=== PATIENT | female | born 1965 | race Caucasian/White ===

== ENCOUNTER 2016-09-19 13:52 | Observation (INO) | payer BC ==
--- NOTE | ~2016-09-19 | CN ---
Consultation Report [facility] [address] [place]. [address] NAME: BLAISE ALEXANDRA : 63 STATUS : DIS Cheryle PAT#: [id number] AGE: 50 ADM/REG DATE : 09/19/16 MR#: [id number] REPORT SERV DATE: 09/20/16 DICTATED BY: APPLE FINNEY DATE: 09/20/16 REPORT STATUS : Draft TRANSCRIBED BY: MODL DATE: 09/20/16 CARDIOLOGY CONSULTATION NOTE DATE OF CONSULTATION: 09/20/2016 REASON FOR CONSULTATION: Chest pain and syncope of several months duration with syncopal event yesterday. HISTORY OF PRESENT ILLNESS: Ms. Alexandra is a 50-year-old woman with a history of depression/anxiety and no significant previous cardiovascular history. Approximately two months ago, the patient reports the onset of a substernal pressure-type chest pain. The patient reports this is a "heaviness" as if someone were sitting on her chest. The pain does not radiate. The patient reports the pain is not clearly associated with dyspnea or diaphoresis. The pain is not clearly exertional. The patient reports the pain may last anywhere from several minutes to several hours. She was seen at [facility] about two months ago where she was evaluated with an exercise stress test with myocardial perfusion imaging. The nuclear portion of the study was essentially normal, showing no myocardial ischemia. The patient did, however, have borderline EKG changes with exercise, and this was mentioned in the report with a recommendation for cardiology consultation. It is not clear whether cardiology consultation occurred at that time. However, the patient reports she had no exertional chest pain, and apparently had a reasonable functional capacity. The patient has continued to have waxing and waning chest pain since that time. Yesterday, the patient had an episode of chest pain. She was talking to one of her colleagues when she had an episode of syncope/near syncope. The patient reports the episode was witnessed. She reports that she woke up on the floor, however, she was unconscious only for a several seconds. The patient denies any loss of bowel or bladder control, post-ictal type confusion, or other neurologic symptoms. The patient was brought to [facility] for further evaluation. The patient reports she was given up to three nitroglycerin tablets for chest pain in the past. These moderated the pain somewhat, but did not completely relieve it. The patient denies orthopnea, paroxysmal nocturnal dyspnea, palpitations, or any previous syncope. PAST MEDICAL HISTORY: Significant only for gastroesophageal reflux disease, depression, and anxiety. PAST SURGICAL HISTORY: The patient has had a total abdominal hysterectomy and bilateral oophorectomy. She has had previous tonsillectomy. SURGICAL HISTORY: Otherwise negative. FAMILY HISTORY: The patient reports that her mother was diagnosed with congestive heart Consultation Report [address] [place]. [address] NAME: BLAISE ALEXANDRA : 63 STATUS : DIS Cheryle PAT#: [id number] AGE: 50 ADM/REG DATE : 09/19/16 MR#: [id number] REPORT SERV DATE: 09/20/16 DICTATED BY: APPLE FINNEY DATE: 09/20/16 REPORT STATUS : Draft TRANSCRIBED BY: ALVIN DATE: 09/20/16 failure at an advanced age. There is no family history of early coronary heart disease or sudden cardiac . SOCIAL HISTORY: The patient was one pack per day x32 year smoker. She quit about four years ago. She has no significant history of alcohol or drug use. She is with children. ALLERGIES: THE PATIENT HAS NO KNOWN MEDICATION ALLERGIES. HOME MEDICATIONS: 1. Prozac 20 mg p.o. daily. 2. Lysine 1 g p.o. daily. 3. Omeprazole 40 mg p.o. daily. REVIEW OF SYSTEMS: A complete 12-system review was performed. This is noncontributory except for the pertinent positives and negatives noted in the history of present illness above. PHYSICAL EXAMINATION: VITAL SIGNS: Temperature is 98.1 degrees Fahrenheit, blood pressure is 112/68 mmHg, heart rate is 58 beats per minute and regular, respirations 15, oxygen saturation is 98% on room air. CONSTITUTIONAL: The patient is a well-nourished, well-developed white woman in no acute distress EYES: PERRL, EOMI, clear conjunctiva. HEAD/MNT: NCAT with moist mucous membranes and grossly normal hard and soft palate. NECK: Supple with no obvious thyromegaly or lymphadenopathy. CARDIOVASCULAR: There is a regular rhythm with a normal S1 and a physiologically split second heart sound. There are no significant murmurs, rubs, or gallops. The jugular venous pressure appears normal. PULMONARY: Clear to auscultation bilaterally, no wheezing, rales or rhonchi noted. No dullness to percussion. Non-labored. ABDOMINAL: Soft, non-tender, non-distended with no hepatosplenomegaly noted. EXTREMITIES: No clubbing, cyanosis or edema. MUSCULOSKELETAL: Grossly normal strength and range of motion in all extremities INTEGUMENTARY: Skin appears intact with no bruises, wounds or active lesions noted NEURO/PSYC: Alert and oriented x3, with no dysarthria, facial droop or lateralizing weakness noted. 12-LEAD EKG: The 12-lead EKG shows normal sinus rhythm with a rate of 62 beats per minute. There is a first degree AV block. The EKG is otherwise normal. TELEMETRY: This shows sinus bradycardia/normal sinus rhythm with no significant abnormalities. CHEST X-RAY: The chest x-ray shows a normal cardiomediastinal silhouette with no acute Consultation Report [address] [address] NAME: BLAISE ALEXANDRA : 63 STATUS : DIS Cheryle PAT#: [id number] AGE: 50 ADM/REG DATE : 09/19/16 MR#: [id number] REPORT SERV DATE: 09/20/16 DICTATED BY: APPLE FINNEY DATE: 09/20/16 REPORT STATUS : Draft TRANSCRIBED BY: ALVIN DATE: 09/20/16 cardiopulmonary process. LABORATORY DATA: Sodium is 143, potassium 3.8, chloride is 110, CO2 of 24, BUN 9, creatinine is 0.67, glucose is 83, calcium 9.1, magnesium 2.1. Troponin I is less than 0.02. White blood cell count is 6.3, hemoglobin 13.7, hematocrit 41, platelets 191, INR is 1.0, PTT is 29, D-dimer is less than 0.27. A second troponin I is also less than 0.02. CT scan of the chest: The patient's CT scan of the chest shows no evidence of pulmonary embolism. The coronary anatomy is reasonably well visualized: There is no evidence of coronary calcification nor is there any obvious evidence of coronary occlusion. The patient's coronary anatomy appears grossly normal by CT scan, though this was not a coronary protocol. ASSESSMENT AND PLAN: 1. Chest pain and syncope/near syncope: At this time, the patient has no obvious evidence of coronary heart disease. She has had an essentially normal stress test at [place]. A repeat stress test has been performed with PET imaging today. The official report is pending at this time. Provided the patient's PET scan shows no evidence of myocardial ischemia, I do not feel any further cardiovascular workup would be indicated except for perhaps a Holter monitor study to evaluate for any significant cardiac dysrhythmia. Provided the patient's PET scan is normal, I feel the patient could be safely discharged to home. She may follow up with Cardiology Clinic in 2-4 weeks to review the results of her Holter monitor. 2. Anxiety disorder: I think the patient's anxiety disorder is the likely cause of her symptoms. The patient was recently started on Prozac. Thank you for allowing me to participate in the care of Ms. Alexandra. The Cardiology Service will continue to follow the patient closely during this hospitalization. [facility]/ASHLEYL Apple Finney MD / [id number] CC: Giovanni Jaffe
--- NOTE | ~2016-09-19 | HP ---
History And Physical [place] [id number] [facility] [place]. [address] NAME: BLAISE ALEXANDRA : 63 STATUS : ADM Cheryle PAT#: [id number] AGE: 50 ADM/REG DATE : 09/19/16 MR#: [id number] REPORT SERV DATE: 09/19/16 DICTATED BY: JIMENEZ DE JESUS DATE: 09/19/16 REPORT STATUS : Draft TRANSCRIBED BY: MODAnthony DATE: 09/19/16 DATE OF ADMISSION: 09/19/2016 CHIEF COMPLAINT: Chest pain. HISTORY OF PRESENT ILLNESS: The patient is a very pleasant 50-year-old white female. About 2 months ago, she developed some substernal chest pressure. She went to [place], had nuclear stress testing which was negative. She states she was pain-free for about three weeks, then she started developing intermittent chest pain about every other day. She does not note that it is present necessarily with exertion; sometimes she has it at rest. She has no associated indigestion. No fever. No cough. She has had no nausea or vomiting. She had some diaphoretic episodes with it. Today she was at work. She had a fairly significant episode of chest pain and then she had a syncopal episode. She was brought to [facility] Emergency Department. She is otherwise healthy relatively. PAST MEDICAL HISTORY: GERD, depression, and anxiety. SOCIAL HISTORY: She quit smoking four years ago. Smoked one pack per day for 32 years. No alcohol use. 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 PAST SURGICAL HISTORY: She has had hysterectomy and tonsillectomy. FAMILY HISTORY: Her mom had CHF in her 80s. Her dad does not have any history of CAD and there is no CAD in her siblings. ALLERGIES: NO KNOWN DRUG ALLERGIES. REVIEW OF SYSTEMS: Full 10-point review of systems obtained. Pertinent positives are mentioned in the HPI. PHYSICAL EXAMINATION: VITAL SIGNS: Blood pressure 122/60, temperature 98.4, pulse 68, respiratory rate 18, and sats were 95% on room air. GENERAL: Well-developed white female, in no obvious distress. HEART: Regular rate and rhythm without murmurs, rubs, or gallops. LUNGS: Grossly clear with good symmetrical air entry. ABDOMEN: Soft, nontender, and nondistended although she does have some mild very upper epigastric tenderness and some tenderness at the sternum upon palpation. EXTREMITIES: Warm and dry. SKIN: Intact without obvious rash or lesion. PSYCHIATRIC: She does appear to be anxious and tearful. LABORATORY AND X-RAY: CBC is normal. Chest x-ray is negative. EKG shows sinus rhythm without any acute ST-T wave changes. Chemistry panel is normal. Troponin is negative. D- dimer is 0.27. History And Physical [address] [address] NAME: BLAISE ALEXANDRA : 63 STATUS : ADM Cheryle PAT#: [id number] AGE: 50 ADM/REG DATE : 09/19/16 MR#: [id number] REPORT SERV DATE: 09/19/16 DICTATED BY: JIMENEZ DE JESUS DATE: 09/19/16 REPORT STATUS : Draft TRANSCRIBED BY: ALVIN DATE: 09/19/16 ASSESSMENT/PLAN: 1. Chest pain, now off and on for two months, no particular pattern. She is not tachycardic or hypertensive. Her initial troponin is negative. She had a negative nuclear stress test at [place] 2 months ago. I think given that this is now her second admission, we ought to look a little deeper certainly. Since she had a syncopal episode today with chest pain, must consider PE but also consider vasovagal response. We will do a CTA of her chest, also consider gallbladder disease. We will check her LFTs, amylase, lipase and perform a right upper quadrant ultrasound. I am going to obtain her records from [facility]. Place her on enteric-coated aspirin. We will provide some antianxiety medication and pain medication. Hopefully once we have all these results back, she could go home tomorrow if they are all negative. 2. Deep venous thrombosis prophylaxis with subcutaneous Lovenox. 3. Depression and anxiety. Continue Prozac and p.r.n. Xanax. 4. GERD. Continue PPI therapy. 5. Disposition pending above. CHINEDU/ALVIN Jimenez De Jesus M.D. / [id number] CC: Maddy Martinez M.D.
--- NOTE | ~2016-09-19 | DS ---
Discharge Summary [facility] [address] [facility] [place]. [address] NAME: BLAISE ALEXANDRA : 63 STATUS : DIS Cheryle PAT#: [id number] AGE: 50 ADM/REG DATE : 09/19/16 MR#: [id number] REPORT SERV DATE: 09/30/16 DICTATED BY: JIMENEZ VELASQUEZ DATE: 09/30/16 REPORT STATUS : Draft TRANSCRIBED BY: MODL DATE: 09/30/16 ADMISSION DATE: 09/19/2016 DISCHARGE DATE: 09/20/2016 DISCHARGE DIAGNOSES: 1. Atypical chest pain. 2. Right upper lung nodule 4.4 mm. 3. Gastroesophageal reflux disease. 4. Depression. 5. Anxiety. HOSPITAL COURSE: The patient is a very pleasant 50-year-old white female, who admitted with substernal chest pressure. She had undergone evaluation at [place] about three weeks prior to admission to our facility. At that time, she had apparently a nuclear stress test that showed negative imaging but she had some borderline EKG changes. It was recommended that she have Cardiology consultation; however, she was sent home, returned here with substernal chest pressure. She underwent a significant evaluation including CTA of the chest, cardiac enzymes amylase, lipase, right upper quadrant ultrasound, with no real etiology found. It was felt due to the fact that she had an intermediate treadmill portion EKG of her stress test at [place], she should go ahead with a PET myocardial perfusion study which she did on 09/20/2016, this was essentially normal and it was felt that she was safe for discharge. Her chest pain had resolved and there is no clear etiology for pain. She had a CT of the chest that essentially did not reveal a PE. FINDINGS WHILE IN THE HOSPITAL: 1. A 4 mm right upper lobe lung nodule. 2. Negative PET myocardial perfusion study. 3. Normal amylase and lipase. Right upper quadrant ultrasound with no stones or sludge or wall thickening. DISCHARGE INSTRUCTIONS: The patient was given an appointment for CT scan of her chest for re evaluation of her pulmonary nodule in 3 months. She was also told she needed to follow up with her primary care physician, and that he would need to follow up her CT scan. She was given explicit written instructions regarding this. She can follow up with her PCP if she has any additional chest pain. DISCHARGE MEDICATIONS: The patient will resume previous home medications. DICTATED BY: Giovanni Mccord/ALVIN Discharge Summary [place] [address] [place]. [address] NAME: BLAISE ALEXANDRA : 63 STATUS : DIS Cheryle PAT#: [id number] AGE: 50 ADM/REG DATE : 09/19/16 MR#: [id number] REPORT SERV DATE: 09/30/16 DICTATED BY: JIMENEZ VELASQUEZ DATE: 09/30/16 REPORT STATUS : Draft TRANSCRIBED BY: ALVIN DATE: 09/30/16 Jimenez Velasquez M.D. / [id number] CC: Giovanni Jaffe
[2016-09-19 13:40] LABS: BASOPHILS 0.3 %; BASOPHILS ABSOLUTE 0.02 10/3/uL (0.0-0.16); EOSINOPHILS 0.3 %; EOSINOPHILS ABSOLUTE 0.02 10/3/uL (0.0-0.53); HEMATOCRIT 40.9 % (36.0-48.0); HEMOGLOBIN 13.7 g/dL (12.0-16.0); IMMATURE GRANULOCYTES 0.2 %; IMMATURE GRANULOCYTES ABSOLUTE 0.01 10/3/uL (0.0-0.11); LYMPHOCYTES 31.2 %; LYMPHOCYTES ABSOLUTE 1.96 10/3/uL (0.67-4.30); MEAN CORPUS HGB CONC 33.5 g/dL (32.0-36.0); MEAN CORPUSCULAR HEMOGLOB 31.3 pg (26.0-34.0); MEAN CORPUSCULAR VOLUME 93.4 fL (80-100); MEAN PLATELET VOLUME 12.6 fL (9.2-13.0); MONOCYTES 5.4 %; MONOCYTES ABSOLUTE 0.34 10/3/uL (0.21-1.20); NEUTROPHILS 62.6 %; NEUTROPHILS ABSOLUTE 3.93 10/3/uL (2.02-8.40); PLATELET COUNT 191 10/3/uL (150-400); RBC DISTRIBUTION WIDTH 12.5 % (12.0-16.0); RED CELL COUNT 4.38 10/6/uL (4.0-5.6); WHITE BLOOD CELLS 6.3 10/3/uL (4.5-10.5)
[2016-09-19 13:41] LABS: MANUAL DIFF NO %
[2016-09-19 13:57] LABS: BUN (BLOOD UREA NITROGEN) 9 MG/DL (6-23); CALCIUM, SERUM 9.1 MG/DL (8.5-10.4); CHEST PAIN PROFILE TAT 0 Hrs 21 Mins; CHLORIDE, SERUM 110 MMOL/L (96-112); CO2 (CARBON DIOXIDE) 24 MMOL/L (24-34); CREATININE 0.67 MG/DL (0.55-1.02); GFR AFRICAN AMERICAN 118 ML/MIN (>=60); GFR NON AFRICAN AMERICAN 102 ML/MIN (>=60); GLUCOSE, SERUM 83 MG/DL (60-99); INTERNATIONAL NORMAL RATI 1.1 UNITS (-); PARTIAL THROMBO TIME 28.6 SEC (22.5-37.2); POTASSIUM, SERUM 3.8 MMOL/L (3.5-5.3); PROTIME (NOT ORD) 13.9 SEC (12.0-14.5); SODIUM, SERUM 143 MMOL/L (135-148); TROPONIN I <0.02 NG/ML (<0.05)
[2016-09-19 14:01] LABS: D-DIMER QUANTITATIVE < 0.27 ug/mLFEU (< 0.50)
[2016-09-19] MEDS ORDERED: PROZAC PO (14:35)
[2016-09-19] MEDS ORDERED: PRILOSEC40 MG PO (14:35)
[2016-09-19] MEDS ORDERED: LYSINE1000 MG PO (14:36)
[2016-09-19 21:24] LABS: DIRECT BILIRUBIN 0.1 MG/DL (0.0-0.4); INDIRECT BILIRUBIN(NOT ORDER) 0.3 MG/DL (0.1-0.9); SGOT(AST) 23 U/L (5-40); SGPT(ALT) 37 U/L (5-65); TOTAL BILIRUBIN 0.4 MG/DL (0-1.2); TOTAL PROTEIN 6.4 G/DL (6.0-8.5); TROPONIN I <0.02 NG/ML (<0.05)
[2016-09-19 21:25] LABS: ALBUMIN 3.5 G/DL (3.5-5.0); ALKALINE PHOSPHATASE 91 U/L (45-117)
== END 2016-09-20 19:29 | disposition home or self-care (01) ==
LOC: ER 13:52 → CDU1 15:31
PROVIDERS: Emergency Medicine; Internal Medicine
DX: R07.9 Chest pain, unspecified (principal); F32.9 Major depressive disorder, single episode, unspecified; F41.9 Anxiety disorder, unspecified; F17.210 Nicotine dependence, cigarettes, uncomplicated; K21.9 Gastro-esophageal reflux disease without esophagitis; Z86.718 Personal history of other venous thrombosis and embolism; Z90.710 Acquired absence of both cervix and uterus; Z90.89 Acquired absence of other organs; Z82.49 Family history of ischemic heart disease and other diseases of the circulatory system; Z79.899 Other long term (current) drug therapy
CPT/HCPCS: 71010; 71275; 76700; 76705; 78492; 80048; 80076; 82150; 83690; 83735; 84484; 85025; 85379; 85610; 85730; 93005; 93017; 96372; 99285; A9270-GY; A9555; G0378; J2785; Q9967